=== PATIENT | female | born 1950 | race Caucasian/White ===

== ENCOUNTER 2018-06-02 10:12 | Day surgery (SDC) | payer OTHER ==
[2018-06-02] MEDS ORDERED: FENTAnyl 50 MCG/ML VIAL (12:05)
[2018-06-02] MEDS ORDERED: MIDAZOLAM 1 MG/ML 2 ML INJ ×2 (12:05)
== END 2018-06-02 15:44 | disposition home or self-care (01) ==
LOC: GIL 10:12
DX: Z12.11 Encounter for screening for malignant neoplasm of colon (principal); K64.8 Other hemorrhoids
CPT/HCPCS: 45378